=== PATIENT | female | born 1965 | race American Indian/Alaskan Native ===

== ENCOUNTER 2019-02-07 21:16 | Emergency (ER) | payer OTHER ==
[2019-02-07] MEDS ORDERED: TRIPLE ANTIBIOTIC TP ONE (21:28)
[2019-02-07] MEDS ORDERED: NACL 0.9% IR ONE (21:28)
[2019-02-07] MEDS ORDERED: IBUPROFEN PO ONE (21:28)
[2019-02-07] MEDS ORDERED: XYLOCAINE 1%/ EPI 1:100,000 INFILTRATI ONE (21:28)
--- NOTE | 2019-02-07 21:28 | Emergency Department Report ---
Chief Complaint: Fall Stated Complaint: fall pain Time Seen by Provider: 02/07/19 21:27 - HPI History of Present Illness: sp fall no loc lac above l eye no focal neuro def legs got trapped in chair and she fell hitting forehead on tile mse completed MSE screening note: Focused history and physical exam performed. Due to findings the following was ordered: ED Disposition for MSE Condition: Stable
[2019-02-08] MEDS ORDERED: IBUPROFEN PO ONE (00:21)
[2019-02-08] MEDS ORDERED: TYLENOL PO ONE (00:26)
[2019-02-08] MEDS ORDERED: TYLENOL ONE (00:26)
--- NOTE | 2019-02-08 00:32 | Emergency Department Report ---
ED Laceration HPI - HPI Chief Complaint: Fall Stated Complaint: fall pain Time Seen by Provider: 02/07/19 21:27 Occurred When: Today Location: Head (left side of forehead) Laceration Symptoms: No Foreign Body Sensation, No Numbness, No Weakness, No Pain Other History: 53-year-old -[place] female with a history of back issues comes in stating she fell off a stool onto the towel. Patient reports that she fell on her face. Denies any loss of consciousness. ED Review of Systems ROS: Stated complaint: fall pain Other details as noted in HPI Comment: All other systems reviewed and negative Skin: other (cut to left side of face) ED Past Medical Hx - Past Medical History Previous Medical History?: No Hx Hypertension: Yes Additional medical history: DJD - Surgical History Past Surgical History?: Yes Additional Surgical History: hysterectomy laporoscopy tubal ligation finger surgery - Social History Smoking Status: Current Some Day Smoker Substance Use Type: Alcohol - Medications Home Medications: Home Medications Medication Instructions Recorded Confirmed Last Taken Type Cyclobenzaprine [Flexeril 10mg] 10 mg PO TID PRN #10 tablet 02/21/15 06/23/16 Unknown Rx Oxycodone HCl/Acetaminophen 1 each PO Q6HR PRN #20 tablet 02/21/15 06/23/16 Unknown Rx [Percocet 10-325 mg] Azithromycin [Zithromax TAB] 500 mg PO QDAY #5 tablet 06/23/16 Unknown Rx Acetaminophen [Acetaminophen TAB] 975 mg PO Q6HR #30 tablet 02/08/19 Unknown Rx Laceration Physical Exam - Exam General: Vital signs noted. No distress. Alert and acting appropriately. Wound Length (cm): 2 Laceration Location: Head (lt side of face) Laceration Exam: Yes Normal Distal CMS, No Foreign Body, No Exposed Tendon, Vessel, or Nerve, No Tendon Injury ED Course Vital Signs 02/07/19 21:25 Temperature 98.7 F Pulse Rate 91 H Respiratory 16 Rate Blood Pressure 127/91 O2 Sat by Pulse 96 Oximetry - Laceration /Wound Repair Left Face Wound Location: face Wound Length (cm): 2 Wound's Depth, Shape: superficial Wound Explored: no foreign body removed Irrigated w/ Saline (ccs): 30 Betadine Prep?: Yes Wound Repaired With: Steri-strips, Dermabond Sterile Dressing Applied?: Yes Progress: Patient tolerated procedure well ED Medical Decision Making - Medical Decision Making Patient has been evaluated by this provider fast track. Patient was given offered ibuprofen for pain management she declined she would like to have Tylenol. Laceration repair by Dermabond and Steri-Strips. Patient be discharged home on Tylenol and to follow up with her primary care provider if symptoms persist or gets worse. Critical care attestation.: If time is entered above; I have spent that time in minutes in the direct care of this critically ill patient, excluding procedure time. ED Disposition Clinical Impression: Laceration of face, Fall Disposition: DC-01 TO HOME OR SELFCARE Is pt being admited?: No Does the pt Need Aspirin: No Condition: Stable Instructions: Fall Prevention for Older Adults (ED), Skin Adhesive Care (ED) Additional Instructions: Please keep wound clean and dry. Do not pick Steri-Strips off as they are there to help approximate the laceration. Tylenol for pain management. If his symptoms persist or gets worse follow-up with a primary care provider. Prescriptions: Acetaminophen [Acetaminophen TAB] 975 mg PO Q6HR #30 tablet Referrals: BRYNN HORN MD [Primary Care Provider] - 3-5 Days Forms: Work/School Release Form(ED)
[2019-02-08 01:00] VITALS: BP 116/68
[2019-02-08] MEDS ORDERED: BOOSTRIX IM ONE ×2 (01:01→01:04)
== END 2019-02-08 01:08 | disposition home or self-care (01) ==
LOC: ED 21:16
DX: S01.81XA Laceration without foreign body of other part of head, initial encounter (principal); I10 Essential (primary) hypertension; M19.90 Unspecified osteoarthritis, unspecified site; F17.200 Nicotine dependence, unspecified, uncomplicated; Z79.899 Other long term (current) drug therapy; Z98.51 Tubal ligation status; Z90.710 Acquired absence of both cervix and uterus; W17.89XA Other fall from one level to another, initial encounter; Y93.89 Activity, other specified; Y92.89 Other specified places as the place of occurrence of the external cause; Y99.8 Other external cause status
CPT/HCPCS: 90471; 90715; 99283